=== PATIENT | female | born 1955 | race Caucasian/White ===

== ENCOUNTER 2016-06-12 23:37 | Emergency (ER) | payer MEDICAID ==
[~2016-06-12] VITALS: Ht 170.2 cm; Wt 111.3 kg
[~2016-06-12 23:37] MED LIST: ACHYD1T PO; ALBU2.5V12 INH; ALBU8.5H2 IH; ALBU8.5H4 IH; ALPR0.257 PO; ASP81CT PO; ATN50T PO; ATOR80TA PO; AZIT250T5 PO; BUDE90AE2 IH; CLOP75TA3 PO; CMBV14.7IN INH; CPR500T PO; DIAZ5TAB PO; FENO200C PO; GLUC1CAP80 PO; HYDR-3702 PO; HYDR12.5 PO; LEVO50TA PO; LISI-595 PO; LISI1TAB6 PO; METF500T4 PO; MONT10TA21 PO; NF-ESOM40C PO; OMEP20TA PO; PANT20TA2 PO; PRED20TA PO; PRM25T PO; ZOLP10TA PO; [UNRECOGNIZED DRUG - OTHER]; atenolol; lisinopril PO; lortab PO; plavix PO
--- OUTSIDE RECORDS SUMMARY | 2016-06-12 23:42 | XMS REPORT | Continuity of Care Document ---
Author Author [facility] Address Unknown Phone Unavailable Care Team Providers Care Clothing Supervisor Name Role Phone HUSAM, RHONDA Reddy MD PCP [phone] Insurance Providers Payer Name Policy Number Subscriber Name Relationship Other1 [id number] Suzi Trujillo 18 Self / Same As Patient Advance Directives Directive Response Recorded Date/Time Advanced Directives No 01/22/16 6:05pm Chief Complaint and Reason for Visit Chief Complaint Altered Neurologic Status Reason for Visit Urinary tract infection Rheumatoid arthritis [id number] Problems Active Problems Medical Problem Onset Date Status Abdominal pain 12/02/2011 Acute Abdominal pain Unknown Acute Abnormal vision 08/07/2012 Acute Acute exacerbation of chronic obstructive airways disease 11/12/2012 Acute Acute infective exacerbation of chronic obstructive airways disease 2012 Acute Biopsy of breast 02/23/2012 Acute Chest pain 08/07/2012 Acute Chronic pain 02/05/2012 Acute Diabetes type 2, uncontrolled Unknown Acute Discoloration of skin 02/05/2012 Acute Disorder of skin 02/05/2012 Acute Disorder of skin AND/OR subcutaneous tissue 02/05/2012 Acute Palpitations 06/10/2012 Acute Pneumonia 11/12/2012 Acute Rheumatoid arthritis Unknown Acute Sprain of hip 08/31/2011 Acute Tachycardia 06/10/2012 Resolved Urinary tract infection Unknown Acute Weakness of limb 08/07/2012 Acute panendoscopy 12/09/2011 Medications Current Home Medications Medication Dose Units Route Directions Days/Qty Instructions Start Date Levothyroxine Sodium 50 Mcg 50 Mcg ORAL Daily@00 12/09/11 Atenolol (Tenormin) 50 Mg 50 Mg ORAL Daily 12/09/11 Diazepam 5 Mg 5 Mg ORAL Twice A Day as needed 02/05/12 Clopidogrel Bisulfate 75 Mg 75 Mg ORAL Daily 08/08/12 Acetaminophen/Hydrocodone Bitart 1 Each 1 Each ORAL Every 6 Hours Albuterol Sulfate 2.5 Mg/3 Ml 2.5 Mg RESPIRATORY (INHALATION) Every 4HRS as needed 08/08/12 Lisinopril/Hydrochlorothiazide 1 Each 1 Each ORAL Daily 11/16/12 Atorvastatin 80 Mg 80 Mg ORAL Daily 11/16/12 Fenofibrate,Micronized 200 Mg 200 Mg ORAL Daily 11/16/12 Montelukast Sodium 10 Mg 10 Mg ORAL Daily 11/19/12 Albuterol Sulfate 8.5 Gm 1-2 Puff RESPIRATORY (INHALATION) Every 4HRS as needed 11/19/12 Budesonide 90 Mcg 2 Puff RESPIRATORY (INHALATION) Twice A Day Metformin Hcl (Glucophage) 500 Mg 500 Mg ORAL Daily 05/04/13 Esomeprazole Magnesium 40 Mg 40 Mg ORAL Daily 05/04/13 Promethazine Hcl 25 Mg 25 Mg ORAL Q6hrs as needed for Nausea Or Diarrhea 10 05/04/13 Ciprofloxacin 500 Mg 500 Mg ORAL Twice A Day 10 01/22/16 Acetaminophen/Hydrocodone Bitart 1 Each 1-2 Tab ORAL Every 6 Hours as needed for Pain 30 01/22/16 Metformin Hcl (Glucophage) 500 Mg 500 Mg ORAL Twice A Day 60 01/22/16 Zolpidem Tartrate 10 Mg 10 Mg ORAL Bedtime 5 01/22/16 Past Home Medications Medication Directions Ordered Status [Plavix] , 75 Mg Oral Daily 12/02/11 Discontinued [Lisinopril] , 10 - 12.5 Mg Oral Daily 12/02/11 Discontinued [Atenolol] , 12/02/11 Discontinued [Lortab] , 10 Mg Oral 6 Hrs 12/02/11 Discontinued [Fenofribate] , 12/02/11 Discontinued Esomeprazole Magnesium 40 Mg Capsule.dr, 40 Mg Oral Daily 12/02/11 Discontinued Zolpidem Tartrate 10 Mg Tablet, 10 Mg Oral Bedtime 12/09/11 Discontinued Albuterol Sulfate 8.5 Gm Hfa.aer.ad, 8.5 Gm Respiratory (Inhalation) As Needed 12/09/11 Discontinued Alprazolam 0.25 Mg Tab.rapdis, 0.25 Mg Oral Daily 12/09/11 Discontinued Albuterol/Ipratropium 14.7 Gm Aero, 14.7 Gm Respiratory (Inhalation) Three Times A Day 12/09/11 Discontinued Pantoprazole Sodium 20 Mg Tablet.dr, 20 Mg Oral Daily 02/05/12 Discontinued Lisinopril 10 Mg Tab, 10 Mg Oral Daily 08/08/12 Discontinued Aspirin 81 Mg Tab.chew, 81 Mg Oral Daily 08/08/12 Discontinued Hydrochlorothiazide 12.5 Mg Capsule, 12.5 Mg Oral Daily 08/08/12 Discontinued Azithromycin 250 Mg Tablet, 2 Tab.sa Oral Daily 11/12/12 Discontinued Prednisone 20 Mg Tablet, 3 Tab Oral Daily 11/12/12 Discontinued Albuterol/Ipratropium 14.7 Gm Aero, 2 Puff Respiratory (Inhalation) Every 6 Hours 11/12/12 Discontinued Social History Social History Problem Response Recorded Date/Time Onset Date Status Exposure to occupational hazards No 11/16/2012 4:53pm Query Response Start Date Stop Date Smoking Status Former smoker Hospital Discharge Instructions No hospital discharge instructions. Plan of Care Discharge Date 01/22/16 8:28pm Disposition 01 HOME OR SELF-CARE Condition at Discharge Stable Instructions/Education Provided Ciprofloxacin (By mouth) Metformin (By mouth) Diabetes Mellitus Type 2 in Adults (ED) Acute Urinary Retention in Women (ED) Prescriptions See Medication Section Referrals RHONDA WEINER MD - Additional Instructions/Education You glucose was 245. You are being put back on your metformin 500 mg twice a day. Your thyroid level was normal. You have a urinary tract infection and are being started on an antibiotic. See Dr. Weiner as soon as possible to get back on your other chronic medications. Some of your test results may not be complete prior to your leaving the Emergency Department. The Emergency Department is not authorized to give test results over the phone. Please contact the doctor's office listed in this packet of information for your final results. Follow up with your primary care physician or return to the Emergency Department for worsening or worrisome symptoms. * Emergency Department phone number: [phone], x [phone]* MEDICAL RECORD If you need copies of your X-rays, call [phone]. If you need copies of your medical record, including lab results, a signed authorization for release of records will be required. A telephone call for release of Health Information is not allowed. BILLING Billing can sometimes be confusing and frustrating. To help avoid confusion in the future, please take a moment to acquaint yourself with the billing parties for services. SERVICE BILLING LIBERTARIAN Emergency Room Services [facility] Physician Services [facility] X-rays [facility] Patients will receive bills for services from the appropriate provider. If you have any questions about your [facility] bill, our staff will be happy to assist you. Please call [phone], and ask for the billing department. THANK YOU for choosing [facility] as your emergency care provider! Care Plan and Goals ~~Discharge Care Plan~~ Problem: Dizziness, weakness or slurred speech and confusion. Goal: Decrease in symptoms Instructions: Take medication(s) as directed. Follow home discharge instructions. Follow up with primary care physician or neurologist as directed. Functional Status No functional status results. Allergies, Adverse Reactions, Alerts Allergen Type Severity Reaction Status Last Updated No Known Allergies Allergy Unknown Active 01/22/16 ketorolac Allergy Unknown Active 01/22/16 Immunizations Name Given Type Status Date Pneumonia Vaccine Received if Current 03/07/03 Historical Historical Vital Signs Acute Vital Signs Vital Response Date/Time Temperature (Fahrenheit) 97.4 01/22/2016 8:26pm Pulse 87 bpm 01/22/2016 8:26pm Respirations 20 01/22/2016 8:26pm Height 5 ft 7 in Weight 252 lb Body Mass Index 39.0 kg/m^2 Results Laboratory Results Test Name Result Units Flags Reference Collection Date/Time Result Date/ Time Comments White Blood Count 10.62 10^3uL 4.0-11.0 01/22/2016 6:30pm 01/22/2016 6: 59pm Red Blood Count 5.23 10^6uL H 4.00-5.00 01/22/2016 6:30pm 01/22/2016 6: 59pm Hemoglobin 16.4 g/dL H 12.0-15.5 01/22/2016 6:30pm 01/22/2016 6:59pm Hematocrit 47.90 % H 35.00-45.00 01/22/2016 6:30pm 01/22/2016 6:59pm Mean Corpuscular Volume 92 FL 80-100 01/22/2016 6:30pm 01/22/2016 6: 59pm Mean Corpuscular Hemoglobin 31.4 PG 26.0-34.0 01/22/2016 6:30pm 2015 6:59pm Mean Corpuscular Hemoglobin Concent 34.2 g/dL 31.0-37.0 01/22/2016 6: 30pm 01/22/2016 6:59pm Red Cell Distribution Width 14.3 % 11.8-15.6 01/22/2016 6:30pm 2015 6:59pm Platelet Count 232 10^3uL 150-450 01/22/2016 6:30pm 01/22/2016 6:59pm Mean Platelet Volume 10.2 FL H 6.0-9.5 01/22/2016 6:30pm 01/22/2016 6: 59pm Neutrophils (%) (Auto) 66 % 51-67 01/22/2016 6:30pm 01/22/2016 7:02pm Lymphocytes (%) (Auto) 25 % 20-46 01/22/2016 6:30pm 01/22/2016 7:02pm Monocytes (%) (Auto) 5 % 3-11 01/22/2016 6:30pm 01/22/2016 7:02pm Eosinophils (%) (Auto) 2 % 0-4 01/22/2016 6:30pm 01/22/2016 7:02pm Basophils (%) (Auto) 7 % H 0-2 01/22/2016 6:30pm 01/22/2016 7:02pm Neutrophils # (Auto) 7.1 X10^3 01/22/2016 6:30pm 01/22/2016 7:02pm Lymphocytes # (Auto) 2.7 X10^3 01/22/2016 6:30pm 01/22/2016 7:02pm Monocytes # (Auto) 0.5 X10^3 01/22/2016 6:30pm 01/22/2016 7:02pm Eosinophils # (Auto) 0.2 10^3uL 01/22/2016 6:30pm 01/22/2016 7:02pm Basophils # (Auto) 0.1 10^3uL 01/22/2016 6:30pm 01/22/2016 7:02pm Volume Urine Centrifuged 12 mL 01/22/2016 6:25pm 01/22/2016 7:12pm Urine Collection Type CLEAN CATCH 01/22/2016 6:25pm 01/22/2016 7: 12pm Urine Color Dark Yellow 01/22/2016 6:25pm 01/22/2016 7:11pm Urine Clarity Cloudy 01/22/2016 6:25pm 01/22/2016 7:11pm Urine pH 6.0 5.0 - 8.0 01/22/2016 6:25pm 01/22/2016 7:11pm Urine Specific [place] 1.020 1.005-1.030 01/22/2016 6:25pm 2015 7:11pm Urine Protein Negative Negative 01/22/2016 6:25pm 01/22/2016 7:11pm Urine Glucose (UA) Negative Negative 01/22/2016 6:25pm 01/22/2016 7: 11pm Urine RBC (Auto) Negative Negative 01/22/2016 6:25pm 01/22/2016 7: 11pm Urine Ketones Negative Negative 01/22/2016 6:25pm 01/22/2016 7:11pm Urine Nitrite Positive H Negative 01/22/2016 6:25pm 01/22/2016 7:11pm Urine Bilirubin Negative Negative 01/22/2016 6:25pm 01/22/2016 7: 11pm Urine Urobilinogen 0.2 mg/dL 0.2-1.0 01/22/2016 6:25pm 01/22/2016 7: 11pm Urine Leukocyte Esterase Trace H Negative 01/22/2016 6:25pm 2015 7:11pm Urine RBC None Seen /HPF 01/22/2016 6:25pm 01/22/2016 7:12pm Urine WBC 20-50 /HPF H 01/22/2016 6:25pm 01/22/2016 7:12pm Urine Bacteria 3+ /HPF H 01/22/2016 6:25pm 01/22/2016 7:12pm Urine Squamous Epithelial Cells 10-20 /LPF 01/22/2016 6:25pm 2015 7:12pm Urine Mucus 1+ 01/22/2016 6:25pm 01/22/2016 7:12pm Urine Hyaline Casts 1+ /LPF H 01/22/2016 6:25pm 01/22/2016 7:12pm Sodium Level 138 mmol/L 135-150 01/22/2016 6:30pm 01/22/2016 7:05pm Potassium Level 3.7 mmol/L 3.5-5.1 01/22/2016 6:30pm 01/22/2016 7:05pm Chloride Level 101 mmol/L 98-108 01/22/2016 6:30pm 01/22/2016 7:05pm Carbon Dioxide Level 27 mmol/L 22-29 01/22/2016 6:30pm 01/22/2016 7: 05pm Anion Gap 13.5 MEQ/L 3-15 01/22/2016 6:30pm 01/22/2016 7:05pm Blood Urea Nitrogen 13 mg/dL 09-2101/22/2016 6:30pm 01/22/2016 7:05pm Creatinine 0.79 mg/dL 0.6-1.2 01/22/2016 6:30pm 01/22/2016 7:05pm BUN/Creatinine Ratio 16 10-01/22/2016 6:30pm 01/22/2016 7:05pm Estimat Glomerular Filtration Rate 89.8 01/22/2016 6:30pm 2015 7:05pm Estimated GFR (Non- 74.2 01/22/2016 6:30pm 2015 7:05pm Glucose Level 245 mg/dL # H 70-110 01/22/2016 6:30pm 01/22/2016 7:05pm Calculated Osmolality 275 mosm/L L 280-300 01/22/2016 6:30pm 01/22/2016 7:05pm Calcium Level 9.6 mg/dL 8.8-10.8 01/22/2016 6:30pm 01/22/2016 7:05pm Calcium/Ionized Calcium Ratio 3.8 mg/dL 3.8-4.6 01/22/2016 6:30pm 01/21 7:05pm Total Bilirubin 0.9 mg/dL 0.1-1.0 01/22/2016 6:30pm 01/22/2016 7:05pm Alkaline Phosphatase 116 U/L 38-126 01/22/2016 6:30pm 01/22/2016 7: 05pm Aspartate Amino Transf (AST/SGOT) 36 U/L 15-37 01/22/2016 6:30pm 2015 7:05pm Alanine Aminotransferase (ALT/SGPT) 39 U/L 30-65 01/22/2016 6:30pm 7:05pm Total Protein 8.6 g/dL H 6.4-8.5 01/22/2016 6:30pm 01/22/2016 7:05pm Albumin 4.3 g/dL 3.4-5.0 01/22/2016 6:30pm 01/22/2016 7:05pm Albumin/Globulin Ratio 1.000 L 1.1-1.8 01/22/2016 6:30pm 01/22/2016 7: 05pm Thyroid Stimulating Hormone (TSH) 2.92 uIU/mL # 0.46-4.68 01/22/2016 6: 30pm 01/22/2016 7:27pm C-Reactive Protein 1.40 mg/dL H 0.0-0.9 01/22/2016 6:30pm 01/22/2016 7: 05pm Procedures No known history of procedures. Encounters Encounter Location Arrival/Admit Date Discharge/Depart Date Attending Provider Departed Emergency Room [facility] 01/22/16 5:51pm 01/22/16 8:28pm RAJESH BOOKER DO Recent Diagnosis
[2016-06-13] MEDS ORDERED: ASPIRIN 81 MG CHEW (CHILDREN'S ASA) PO ONE (00:05)
[2016-06-13 00:52] LABS: BASOPHILS % (AUTO) 0 % (0-2); EOSINOPHILS % (AUTO) 0 % (0-4); LYMPHOCYTES # (AUTO) 1.9 X10^3; MEAN CORPUSCULAR HEMOGLOBIN 30.8 PG (26.0-34.0); MEAN CORPUSCULAR HGB CONC 32.9 g/dL (31.0-37.0); MEAN CORPUSCULAR VOLUME 94 FL (80-100); MEAN PLATELET VOLUME 10.4 FL (6.0-9.5); MONOCYTES # (AUTO) 0.8 X10^3; MONOCYTES % (AUTO) 4 % (3-11); NEUTROPHILS # (AUTO) 14.4 X10^3; NEUTROPHILS % (AUTO) 84 % (51-67); PLATELET COUNT 246 10^3uL (150-450); WHITE BLOOD COUNT 17.14 10^3uL (4.0-11.0)
[2016-06-13] MEDS ORDERED: ROSU40TA PO (00:54)
[2016-06-13] MEDS ORDERED: ZLP5T PO (00:55)
[2016-06-13 01:02] LABS: ALBUMIN 4.1 g/dL (3.4-5.0); ALKALINE PHOSPHATASE 164 U/L (38-126); ANION GAP 18.5 MEQ/L (3-15); BUN/CREATININE RATIO 18 (10-20); CALCULATED IONIZED CALCIUM 4.1 mg/dL (3.8-4.6); LIPASE* 115 U/L (23-300); MAGNESIUM* 1.9 mg/dL (1.6-2.3); TOTAL PROTEIN 7.5 g/dL (6.4-8.5)
[2016-06-13] MEDS ORDERED: IPRA3AMP11 INH ×2 (01:04→03:49)
[2016-06-13] MEDS ORDERED: PRD20T PO (01:06)
[2016-06-13] MEDS ORDERED: ALBUTEROL/IPRATROPIUM 3MG-0.5MG/3ML (DUONEB) NEB VIAL INH ONE (02:05)
--- NOTE | 2016-06-13 02:15 | NUR ---
RECEIVED CRITICAL VALUE OF DDIMER [phone] - REPORTED TO DR. WILSON AT THIS TIME.
[2016-06-13] MEDS ORDERED: LEVOFLOXACIN 250 MG TAB (LEVAQUIN) PO SCH (03:45)
[2016-06-13] MEDS ORDERED: LEVO500T16 PO (03:49)
[2016-06-13] MEDS ORDERED: AZIT250T81 PO (04:04)
[2016-06-13] MEDS ORDERED: AZITHROMYCIN 250 MG TAB (ZITHROMAX) PO ONE (04:05)
[2016-06-13 04:24] VITALS: BP 134/57
--- NOTE | 2016-06-13 09:00 | Diagnostic Imaging Report ---
PROCEDURE: CT angiography of the chest with contrast. TECHNIQUE: Multiple contiguous axial images were obtained through the chest after uneventful bolus administration of intravenous contrast. Reconstructed CTA MIP acquisitions were also performed. INDICATION: Chest pain, cough, shortness of breath and elevated d-dimer. FINDINGS: There is some minimal left basilar atelectasis and/or pneumonitis. There is no pleural or pericardial fluid. There is no pneumothorax. The thoracic aorta is normal in caliber without evidence of dissection. There are coronary artery calcifications. There are no filling defects seen within the pulmonary arteries to suggest pulmonary embolism. There is no pathologically enlarged adenopathy in the chest. There are mild degenerative changes in the spine. Visualized intra-abdominal structures are unremarkable. IMPRESSION: No evidence of pulmonary embolism or aortic dissection. Minimal left basilar atelectasis and/or pneumonitis Coronary artery calcifications Dictated by: Dictated on workstation # [id number]
--- NOTE | 2016-06-13 09:58 | Diagnostic Imaging Report ---
INDICATION: Chest pain and cough. A single view of the chest was obtained. Comparison is made with prior examination from 11/16/12. FINDINGS: The heart size is stable. Mediastinum is unremarkable. There is a right basilar infiltrate suspect for pneumonia. There is no pleural effusion or pneumothorax. IMPRESSION: Right basilar infiltrate suspect for pneumonia. Dictated by: Dictated on workstation # [id number]
== END 2016-06-13 04:25 | disposition home or self-care (01) ==
LOC: ED 23:39
DX: J18.9 Pneumonia, unspecified organism (principal); J44.9 Chronic obstructive pulmonary disease, unspecified; F17.210 Nicotine dependence, cigarettes, uncomplicated
CPT/HCPCS: 36415; 71010; 71275; 80053; 83690; 83735; 84484; 85025; 85379; 85610; 85730; 93005; 94640; 99284; A9270; Q9967; 93010

== ENCOUNTER 2016-06-22 05:51 | Emergency (ER) | payer MEDICAID ==
[~2016-06-22] VITALS: Ht 170.2 cm; Wt 112.8 kg
--- OUTSIDE RECORDS SUMMARY | 2016-06-22 05:55 | XMS REPORT | Summary of Care ---
Author Author Marco Antonio Monte M.D. Organization Unknown Address Unknown Phone Unavailable Care Team Providers Care Straw Baler Name Role Phone Marco Antonio Monte M.D. Unavailable Unavailable Marco Antonio Monte Unavailable Unavailable Unavailable Unavailable Functional Status Name Dates Details Functional status health issues are not documented Status: Name Dates Details Cognitive status health issues are not documented Status: Problems Name Dates Details Asthma (493.90, J45.909) Status: Active Fatigue (780.79, R53.83) Status: Active Aortic aneurysm (441.9, I71.9) Status: Active Infective otitis externa of right ear (380.10, H60.391) Status: Active Disequilibrium (780.4, R42) Status: Active Nonalcoholic fatty liver disease (571.8, K76.0) Status: Active Rheumatoid arthritis (714.0, M06.9) Status: Active Peripheral vascular disease (443.9, I73.9) Status: Active Spondylitis (720.9, M46.90) Status: Active Anxiety (300.00, F41.9) Status: Active ASHD (arteriosclerotic heart disease) (414.00, I25.10) Status: Active Dyslipidemia (272.4, E78.5) Status: Active HTN (hypertension) (401.9, I10) Status: Active Hypothyroid (244.9, E03.9) Status: Active Muscle atrophy of lower extremity (728.2, M62.59) Status: Active Pain of back and left lower extremity (724.5, M54.9) Status: Active Type 2 diabetes mellitus (250.00, E11.9) Status: Active Medications Name Dates Details Atenolol 25 MG Oral Tablet TAKE 1 TABLET DAILY DIRECTED. Quantity: 90 Refills: 2 Marco Antonio Monte M.D. Start 22-Mar-2016 Active Rosuvastatin Calcium 40 MG Oral Tablet TAKE 1 TABLET DAILY. Quantity: 90 Refills: 3 Marco Antonio Monte M.D. Start 22-Mar-2016 Active Levo-T 50 MCG Oral Tablet 1/2 TABLET DAILY Quantity: 90 Refills: 2 Marco Antonio Motne M.D. Start 22-Mar-2016 Active Hydrocodone-Acetaminophen 7.5-325 MG Oral Tablet TAKE 1 TO 2 TABLETS EVERY 6 HOURS NEEDED FOR PAIN. Quantity: 240 Refills: 0 Lavell Marrero, Marco Antonio Start 22-Mar-2016 Active Zolpidem Tartrate 5 MG Oral Tablet TAKE 1 TABLET AT BEDTIME NEEDED. Quantity: 60 Refills: 2 Lavell Marrero, Marco Antonio Start 22-Mar-2016 Active Clopidogrel Bisulfate 75 MG Oral Tablet TAKE 1 TABLET DAILY. Quantity: 90 Refills: 6 Lavell Marrero, Marco Antonio Start 22-Mar-2016 Active DiazePAM 2 MG Oral Tablet TAKE 2 TABLETS 3 TIMES DAILY. Quantity: 60 Refills: 2 Lavell Marrero, Marco Antonio Start 31-Mar-2016 Active Pulmicort Flexhaler 180 MCG/ACT Inhalation Aerosol Powder Breath Activated INHALE 2 PUFFS, BY MOUTH, TWICE DAILY. RINSE MOUTH AFTER USE. Quantity: 1 Refills: 4 Marco Antonio Monte M.D. Start 12-Apr-2016 Active Fluticasone Propionate 50 MCG/ACT Nasal Suspension USE 1 TO 2 SPRAYS IN EACH NOSTRIL ONCE DAILY. Quantity: 1 Refills: 2 Marco Antonio Monte M.D. Start 11-Jun-2016 Active PredniSONE 20 MG Oral Tablet TAKE 2 TABLETS DAILY. Quantity: 12 Refills: 1 Marco Antonio Monte M.D. Start 11-Jun-2016 Active Ventolin HFA 108 (90 Base) MCG/ACT Inhalation Aerosol Solution Refills: 0 Start 12-Apr-2016 Active Montelukast Sodium 10 MG Oral Tablet Take 1 tablet daily Refills: 0 Start 12-Apr-2016 Active Pulmicort Flexhaler 90 MCG/ACT Inhalation Aerosol Powder Breath Activated INHALE 1 PUFF TWICE DAILY. RINSE MOUTH AFTER USE. Quantity: 2 Refills: 3 Marco Antonio Monte M.D. Start 22-Mar-2016 Active Metamucil 48.57 % Oral Powder USE DIRECTED. Refills: 0 Marco Antonio Monte M.D. Start 22-Mar-2016 Active Levothyroxine Sodium 50 MCG Oral Tablet Take 1/2 tab daily Refills: 0 Marco Antonio Monte M.D. Start 22-Mar-2016 Active MetFORMIN HCl - 500 MG Oral Tablet Take 1 po daily in am. Quantity: 90 Refills: 3 Lavell Marrero Marco Antonio Start 22-Mar-2016 Active Lisinopril-Hydrochlorothiazide 10-12.5 MG Oral Tablet TAKE 1 TABLET DAILY. Quantity: 30 Refills: 6 Lavell Elida Marco Antonio Start 22-Mar-2016 Active Pantoprazole Sodium 40 MG Oral Tablet Delayed Release TAKE 1 TABLET DAILY. Quantity: 30 Refills: 4 Lavell Elida Marco Antonio Start 22-Mar-2016 Active Advair Diskus 250-50 MCG/DOSE Inhalation Aerosol Powder Breath Activated INHALE 1 PUFF EVERY 12 HOURS. Quantity: 1 Refills: 2 Lavell Marrero Marco Antonio Start 11-Jun-2016 Active 60 Aerosol Powder Breath Activated Disp Pack ProAir HFA 108 (90 Base) MCG/ACT Inhalation Aerosol Solution INHALE 1 OR 2 PUFFS EVERY 4 TO 6 HOURS NEEDED Quantity: 8.5 Refills: 3 Lavell Marrero Marco Antonio Start 21-May-2016 Active Allergies and Adverse Reactions Name Dates Details NSAIDs (Allergy) Status: Active omeprazole (Allergy) Status: Active tramadol (Allergy) Status: Active Past Medical History Name Dates Details History of cardiac disorder (V12.50, Z86.79) Status: Resolved History of chronic obstructive lung disease (V12.69, Z87.09) Status: Resolved History of Chronic pain (338.29, G89.29) Status: Resolved History of myocardial infarction (412, I25.2) Status: Resolved History of shortness of breath (V13.89, Z87.898) Status: Resolved History of Swollen gland (785.6, R59.9) Status: Resolved History of thyroid disease (V12.29, Z86.39) Status: Resolved History of Vision problems (V41.0, H54.7) Status: Resolved Procedures Procedure Dates Details History of Cholecystectomy History of Tubal Ligation History of Incisional Breast Biopsy History of Cath Stent Placement History of Spine Repair History of Back Surgery Procedures not documented Immunization Name Dates Details Immunizations not documented Family History Name Dates Details Family history of cardiac disorder (V17.49, Z82.49) Comments: Family History Status: Active Family history of liver disease (V18.59, Z83.79) Comments: Family History Status: Active Family history of kidney stones (V18.69, Z84.1) Comments: Family History Status: Active Family history of thyroid disease (V18.19, Z83.49) Comments: Family History Status: Active Name Dates Details Family history of diabetes mellitus (V18.0, Z83.3) Status: Active Family history of High cholesterol (272.0, E78.00) Status: Active Name Dates Details Family history of hypertension (V17.49, Z82.49) Status: Active Family history of sleep apnea (V19.8, Z82.0) Status: Active Family history of High cholesterol (272.0, E78.00) Status: Active Name Dates Details Family history of cerebrovascular accident (CVA) (V17.1, Z82.3) Status: Active Family history of peripheral vascular disease (V17.49, Z82.49) Status: Active Family history of hypertension (V17.49, Z82.49) Status: Active Family history of High cholesterol (272.0, E78.00) Status: Active Name Dates Details Family history of sudden cardiac (SCD) (V17.41, Z82.41) Status: Active Family history of hypertension (V17.49, Z82.49) Status: Active Family history of High cholesterol (272.0, E78.00) Status: Active Name Dates Details Family history of diabetes mellitus (V18.0, Z83.3) Status: Active Social History Name Dates Details - Status: Name Dates Details Current every day smoker Vital Signs Date Test Result Details 21-May-2016 11:01 BP Systolic 140 mm[Hg] Status: Comments: Location: ; Position: BP Diastolic 86 mm[Hg] Status: Comments: Location: ; Position: Temperature 97.7 f Status: Comments: Method: Heart Rate 99 /min Status: Comments: Location: ; Weight 246 lb Status: Physical Findings 95 Status: Comments: O2 Saturation Results Date Description Value Details 20-May-2016 14:13 BASIC METABOLIC PROFILE 1210 Comments: Fastin hours SODIUM 137 mmol/L Range: 133-144 POTASSIUM 4.3 mmol/L Range: 3.5-5.1 CHLORIDE 104 mmol/L Range: 98-110 CARBON DIOXIDE 23.1 mmol/L Range: 23.0-33.0 ANION GAP 10 mmol/L Range: 6-16 BUN 16 mg/dL Range: 7-18 CREATININE, SERUM 0.82 mg/dL Range: 0.55-1.02 EST GFR, >60 ml/min Range: >60 EST GFR, NON-AFR [place] >60 ml/min Range: >60 Comments: EST GFR is reported in ml/min per 1.73 m2 of body surface area. ----- BUN:CREATININE RATIO 20 GLUCOSE 188 mg/dL (Above high threshold) Range: 70-100 CALCIUM 8.4 mg/dL (Below low threshold) Range: 8.5-10.1 14:13 LIPID PROFILE 1184 Comments: Fastin hours CHOLESTEROL 186 mg/dL Range: <200 TRIGLYCERIDES 199 mg/dL Range: 30-200 HDL Cholesterol 34 mg/dL (Below low threshold) Range: >39 NON HDL CHOLESTEROL 152 CARDIAC RSK FACTOR 5.5 units (Above high threshold) Range: 4.4-5.0 LDL - CALCULATED 112 mg/dL Range: 0-130 14:20 THYROID STIM. HORMONE 3602 Comments: Fastin hours THYROID STIM. HORMONE 3.707 uIU/mL Range: 0.550-4.780 Comments: No established reference ranges for infants and children <2 years of age----- 21-May-2016 08:27 HEMOGLOBIN A1C 3507 Comments: Fastin hours Hemoglobin A1C 8.0 % ESTIMATED AVG. GLUCOSE 183 Plan of Care Name Dates Details Planned Observations Planned Goals not documented Planned Encounters Appointment; Provider: Marco Antonio Monte M.D. On 18-Jun-2016 15:00 Instructions Name Dates Details Instructions not documented Encounters Appointment; Marco Antonio Monte M.D. Encounter Diagnosis: Problem not documented On 21-May-2016 11:00 Appointment; Jessica Olmos Au.D. Encounter Diagnosis: Problem not documented On 23-Apr-2016 13:30 Appointment; Marco Antonio Monte M.D. Encounter Diagnosis: Problem not documented On 21-Apr-2016 14:00 Appointment; Félix Terry M.A.|C.C.C.-A Encounter Diagnosis: Problem not documented On 12-Apr-2016 14:15 Appointment; Harsha Chi M.D. Encounter Diagnosis: Problem not documented On 12-Apr-2016 14:00 Appointment; Marco Antonio Monte M.D. Encounter Diagnosis: Problem not documented On 22-Mar-2016 14:00"
[2016-06-22] MEDS ORDERED: NITROGLYCERIN SUBLINGUAL 0.4 MG (NITROQUICK) TABLET SL PRN (06:15)
[2016-06-22] MEDS ORDERED: SODIUM CHLORIDE FLUSH 3 ML SYR IV PRN (06:15)
[2016-06-22] MEDS ORDERED: SODIUM CHLORIDE FLUSH 10 ML SYR IV PRN (06:15)
[2016-06-22] MEDS ORDERED: ONDANSETRON 2 MG/ML (Z0FRAN) 2 ML VIAL IV ONE (06:15)
[2016-06-22] MEDS ORDERED: ASPIRIN 81 MG CHEW (CHILDREN'S ASA) PO ONE (06:15)
[2016-06-22] MEDS ORDERED: SODIUM CHLORIDE 250 ML IV PRN (06:15)
[2016-06-22 06:19] LABS: BASOPHILS % (AUTO) 1 % (0-2); EOSINOPHILS # (AUTO) 0.3 10^3uL; EOSINOPHILS % (AUTO) 3 % (0-4); LYMPHOCYTES # (AUTO) 3.2 X10^3; MEAN CORPUSCULAR HGB CONC 33.3 g/dL (31.0-37.0); MEAN CORPUSCULAR VOLUME 93 FL (80-100); MEAN PLATELET VOLUME 10.1 FL (6.0-9.5); MONOCYTES # (AUTO) 0.7 X10^3; MONOCYTES % (AUTO) 7 % (3-11); NEUTROPHILS # (AUTO) 5.7 X10^3; NEUTROPHILS % (AUTO) 57 % (51-67); PLATELET COUNT 191 10^3uL (150-450); WHITE BLOOD COUNT 9.98 10^3uL (4.0-11.0)
--- NOTE | 2016-06-22 06:25 | NUR ---
Pt states that the nitro did not help her pain at all, she states that the pain continues to be burning in her upper chest and back. She states that is nauseated, but no emesis.
[2016-06-22 06:28] VITALS: BP_DIAS 56
[2016-06-22] MEDS ORDERED: NS IV 500 ML 500 ML ONE (06:30)
[2016-06-22 06:34] LABS: ALBUMIN 3.6 g/dL (3.4-5.0); ALKALINE PHOSPHATASE 173 U/L (38-126); ANION GAP 13.4 MEQ/L (3-15); BUN/CREATININE RATIO 28 (10-20); CREATINE KINASE 50 U/L (30-135); TOTAL PROTEIN 6.7 g/dL (6.4-8.5)
--- NOTE | 2016-06-22 06:35 | NUR ---
Noted that pt's rythym has changed, went in to see pt, she complains of feeling very hot and sweaty, RN x 2 are attempting to get repeat EKG, noted that pt's HR is decreasing to 50's Dr. Reeves came in room and assisted with getting EKG and to see pt. Pt remains alert, and complaining of being hot.
--- NOTE | 2016-06-22 06:45 | NUR ---
Pt continues to be lying flat, noted that BP is more stable at this time, pt's daughter was called per her request and notified of pt being in ED
[2016-06-22] MEDS: morphine INJ 4 MG/ML 1 ML SYRINGE IV PRN ×2 (06:47→07:15)
--- NOTE | 2016-06-22 06:58 | Diagnostic Imaging Report ---
INDICATION: Chest pain. TECHNIQUE: Single view chest 6:22 AM. CORRELATION STUDY: 06/13/2016 FINDINGS: Heart size remains mildly enlarged. Vasculature within normal limits. Lung diane overall generally clear given technique. IMPRESSION: 1. Stable portable chest. Mild cardiac enlargement without failure or otherwise acute findings. Dictated by: Dictated on workstation # [id number]
--- NOTE | 2016-06-22 07:00 | NUR ---
Pt report given to Ruby DUNLAP for continued care of pt.
[2016-06-22] MEDS ORDERED: DIAZEPAM 10 MG/2 ML (VALIUM) SYRINGE IV ONE (07:30)
== END 2016-06-22 07:55 | disposition short-term general hospital (02) ==
LOC: ED 05:52
DX: I20.0 Unstable angina (principal); I11.9 Hypertensive heart disease without heart failure; F17.210 Nicotine dependence, cigarettes, uncomplicated
CPT/HCPCS: 36415; 51702; 71010; 80053; 82550; 82553; 83880; 84484; 85025; 85610; 85730; 93005; 96361; 96374; 96375; 99285; A9270; J2270; J2405; J3360; J7030; 93010

== ENCOUNTER → 2016-06-22 | Outpatient (CLI) | payer MEDICAID ==
[~2016-06-22] MED LIST changes: +AZIT250T81 PO; +IPRA3AMP11 INH; +LEVO500T16 PO; +PRD20T PO; +ROSU40TA PO; +ZLP5T PO
== END ==
LOC: EMS 06:56
PROVIDERS: ATTEND Family Medicine
DX: R07.89 Other chest pain (principal)

== ENCOUNTER 2016-06-28 09:17 | Emergency (ER) | payer MEDICAID ==
[~2016-06-28] VITALS: Ht 170.2 cm; Wt 105.6 kg
--- NOTE | 2016-06-28 09:34 | NUR ---
DR SILVA AT [facility] PAGED RE PT. THE ANSWERING SERVICE STATES HE DID NOT ANSWER BUT THAT HE HAS OUR CONTACT INFO & WILL CALL US BACK. THIS RN INSTRUCTED BY DENYS MCMAHON TO PAGE HIM THROUGH [employer] [facility]. SAME DONE & THEY STATE THEY WILL PAGE MD & HE WILL CALL US BACK. CL
[2016-06-28] MEDS ORDERED: NITROGLYCERIN 2% OINTMENT (NITRO-BID) 1 GM UNIT DOSE PACKET TOP PRN (09:35)
[2016-06-28] MEDS ORDERED: ASPIRIN 81 MG CHEW (LOW-DOSE) PO PRN (09:35)
[2016-06-28] MEDS ORDERED: SODIUM CHLORIDE 250 ML ONE (09:37)
[2016-06-28] MEDS ORDERED: ASPIRIN 81 MG CHEW (LOW-DOSE) ONE (09:38)
[2016-06-28] MEDS ORDERED: NITROGLYCERIN 2% OINTMENT (NITRO-BID) 1 GM UNIT DOSE PACKET TOP ONE (09:38)
[2016-06-28] MEDS ORDERED: morphine INJ 2 MG/ML 1 ML SYRINGE ONE (09:38)
[2016-06-28 09:44] LABS: BASOPHILS % (AUTO) 1 % (0-2); EOSINOPHILS # (AUTO) 0.3 10^3uL; EOSINOPHILS % (AUTO) 3 % (0-4); LYMPHOCYTES # (AUTO) 2.6 X10^3; MEAN CORPUSCULAR HEMOGLOBIN 30.5 PG (26.0-34.0); MEAN CORPUSCULAR HGB CONC 32.9 g/dL (31.0-37.0); MEAN CORPUSCULAR VOLUME 93 FL (80-100); MEAN PLATELET VOLUME 9.9 FL (6.0-9.5); MONOCYTES % (AUTO) 10 % (3-11); NEUTROPHILS % (AUTO) 60 % (51-67); PLATELET COUNT 234 10^3uL (150-450); WHITE BLOOD COUNT 10.01 10^3uL (4.0-11.0)
[2016-06-28] MEDS: morphine INJ 2 MG/ML 1 ML SYRINGE IV PRN ×4 (09:44→10:17)
[2016-06-28 09:58] LABS: ALBUMIN 4.1 g/dL (3.4-5.0); TOTAL PROTEIN 7.6 g/dL (6.4-8.5)
[2016-06-28] MEDS ORDERED: NITROGLYCERIN DRIP 25 MG/D5W 250 ML BTL IV STA (10:03)
[2016-06-28] MEDS ORDERED: HEPARIN 1000 UNIT/ML 2 ML VIAL IV ONE (10:05)
[2016-06-28] MEDS ORDERED: NITROGLYCERIN DRIP 25 MG/D5W 250 ML IV ONE ×2 (10:06→10:15)
--- NOTE | 2016-06-28 10:18 | NUR ---
DR SILVA RETURNS CALL TO DR COOK. PT PREPPING FOR TSF TO [facility]. CL
[2016-06-28] MEDS ORDERED: HYDROmorphone 2 MG/ML (DILAUDID) 1 ML SYRINGE ONE (10:20)
[2016-06-28] MEDS ORDERED: HYDROmorphone 2 MG/ML (DILAUDID) 1 ML SYRINGE IV ONE (10:20)
--- NOTE | 2016-06-28 10:23 | Diagnostic Imaging Report ---
INDICATION: Chest pain Frontal chest obtained at 1009 AM and compared with 06/22/16. Heart is borderline in size. There is poor inspiration with some mild bibasilar atelectasis. Lungs are otherwise clear. There is no pneumothorax or pleural fluid. IMPRESSION: Poor inspiration with resultant mild bibasilar atelectatic change. No other focal abnormality. Dictated by: Dictated on workstation # [id number]
[2016-06-28] MEDS ORDERED: HEPARIN DRIP 25000 UNIT/250 ML 250 ML IV ONE (10:25)
--- NOTE | 2016-06-28 10:48 | NUR ---
nitro drip increased to 10mcg/hr
--- NOTE | 2016-06-28 10:50 | NUR ---
nitro paste removed from chest.
[2016-06-28] MEDS ORDERED: ONDANSETRON 2 MG/ML (Z0FRAN) 2 ML VIAL ONE (10:53)
[2016-06-28] MEDS ORDERED: ONDANSETRON 2 MG/ML (Z0FRAN) 2 ML VIAL IV ONE (11:15)
[2016-06-28 11:34] VITALS: BP 137/73
== END 2016-06-28 11:11 | disposition short-term general hospital (02) ==
LOC: EDUNIT# 09:17 → ED 09:18
DX: I20.0 Unstable angina (principal); I11.9 Hypertensive heart disease without heart failure; F17.210 Nicotine dependence, cigarettes, uncomplicated
CPT/HCPCS: 36415; 71010; 80053; 82550; 82553; 84484; 85025; 85610; 85730; 93005; 96361; 96374; 96375; 96376; 99284; A9270; J1170; J1644; J2270; J2405; J7030; 93010

== ENCOUNTER → 2016-06-28 | Outpatient (CLI) | payer MEDICAID | LOC: EMS 10:40 | DX: R07.89 Other chest pain (principal); R79.89 Other specified abnormal findings of blood chemistry; Z95.818 Presence of other cardiac implants and grafts ==